=== PATIENT | female | born 1960 | race Caucasian/White ===

== ENCOUNTER 2017-08-07 09:12 | Emergency (ER) | payer BC ==
[2017-08-07 10:02] LABS: #Basophils 0.1 thou/uL (0.0-0.2); #Eosinphils 0.1 thou/uL (0.0-0.7); #Lymphocytes 1.7 thou/uL (1.20-3.40); #Monocytes 0.4 thou/uL (0.11-0.59); #Neutrophils 5.7 thou/uL (1.40-6.50); %Basophils 1.1 % (0.0-1.0); %Eosinophils 1.7 % (0.0-10.0); %Lymphocytes 21.4 % (21.0-51.0); %Monocytes 4.7 % (0.0-10.0); Hematocrit 42.9 % (36.0-47.0); Mean Platelet Volume 9.3 fL (7.4-10.4); Red Blood Cell (RBC) Count 4.53 mill/uL (4.20-5.40)
[2017-08-07 10:15] LABS: Carbon Dioxide 21 mmol/L (22-29); Chloride 108 mmol/L (98-107)
[2017-08-07 10:16] LABS: ALT (SGPT) 36 U/L (8-55); AST (SGOT) 29 U/L (5-34); Alkaline Phosphatase 100 U/L (40-150); Anion Gap 14 mmol/L (10-20); BUN (Urea Nitrogen) 9 mg/dL (9.8-20.1); Bilirubin, Total 0.6 mg/dL (0.2-1.2); CK (CPK) 145 U/L (29-168); Calc. Creatinine Clearance 0 mL/min (70-130); Calcium 9.4 mg/dL (7.8-10.44); Estimated GFR-MDRD 79; Globulin 3.1 g/dL (2.4-3.5); Troponin I Less than 0.010 ng/mL (< 0.028)
[2017-08-07] MEDS ORDERED: Meclizine HCl 25 MG TAB ONE (10:16)
--- NOTE | 2017-08-07 10:33 | RAD ---
PORTABLE CHEST: History: Syncope. FINDINGS: The heart size and mediastinum are within normal limits. The lungs are clear of any infiltrative pro cess. There are no significant bony findings. IMPRESSION: No active intrathoracic disease. POS: [facility]
== END 2017-08-07 12:21 | disposition home or self-care (01) ==
LOC: SCSER 09:12
DX: R42 Dizziness and giddiness (principal); R07.89 Other chest pain; K58.9 Irritable bowel syndrome, unspecified; E78.5 Hyperlipidemia, unspecified; M13.80 Other specified arthritis, unspecified site
CPT/HCPCS: 71010; 80053; 82550; 82553; 84484; 85025; 93005; 94760

== ENCOUNTER 2017-09-10 10:49 | Outpatient (CLI) | payer BC ==
--- NOTE | 2017-09-10 13:24 | MMO ---
BILATERAL SCREENING MAMMOGRAMS: Date: 09/10/17 Comparison made to prior exams from 2014 and 2015. This patient's mammogram was interpreted with the assistance of computer-aided detection. FINDINGS: Both breasts show fatty replacement. No mass or distortion. No suspicious calcification. No interval change identified. Recommend one year follow-up. IMPRESSION: BIRADS 1: Negative POS: [facility]
== END 2017-09-10 10:50 | disposition home or self-care (01) ==
LOC: SCSMAMMO 10:49
PROVIDERS: ATTEND Family Medicine
DX: Z12.31 Encounter for screening mammogram for malignant neoplasm of breast (principal)
CPT/HCPCS: 77067; G0202

== ENCOUNTER 2018-03-23 09:36 | Emergency (ER) | payer BC ==
--- NOTE | 2018-03-23 10:58 | RAD ---
LUMBAR SPINE 2 VIEWS: HISTORY: Back pain. Fall. Back injury. FINDINGS: Five lumbar-type vertebrae. Pedicles are intact. Vertebral body heights and AP alignment are mainta ined. Mild left convex curvature. Disk space narrowing at the L3-4 level. Mild osteophytosis. No acute fracture or dislocation. IMPRESSION: Mild lumbar spondylosis. No evidence of compression fracture. POS: [facility]
== END 2018-03-23 10:48 | disposition home or self-care (01) ==
LOC: SCSER 09:36
DX: S39.012A Strain of muscle, fascia and tendon of lower back, initial encounter (principal); E78.5 Hyperlipidemia, unspecified; Z79.899 Other long term (current) drug therapy; W01.0XXA Fall on same level from slipping, tripping and stumbling without subsequent striking against object, initial encounter
CPT/HCPCS: 72100

== ENCOUNTER 2018-09-16 08:41 | Outpatient (CLI) | payer BC ==
--- NOTE | 2018-09-16 10:10 | MMO ---
BILATERAL SCREENING DIGITAL MAMMOGRAMS: History: 58-year-old presents for annual screening mammograms. Comparison: 09-10-17, 08-14-16 This study is interpreted with the assistance of computer aided detection. FINDINGS: Images demonstrate no definite evidence of masses or lesions. No evidence of architectural distortion seen. Mammographic appearance is stable. IMPRESSION: BIRADS category 1 - negative exam. POS: [facility]
== END 2018-09-16 08:42 | disposition home or self-care (01) ==
LOC: SCSMAMMO 08:41
PROVIDERS: ATTEND Family Medicine
DX: Z12.31 Encounter for screening mammogram for malignant neoplasm of breast (principal)
CPT/HCPCS: 77067

== ENCOUNTER 2019-03-08 10:48 | Emergency (ER) | payer BC ==
[2019-03-08] MEDS ORDERED: Ibuprofen 600 MG TAB ONE (11:07)
[2019-03-08] MEDS ORDERED: Ibuprofen 200 MG TAB ONE (11:08)
--- NOTE | 2019-03-08 11:55 | RAD ---
EXAM: 3 views of the right foot HISTORY: Foot pain after dropping plywood on top of foot COMPARISON: None FINDINGS: 3 views of the right foot shows no evidence of acute fracture or dislocation. Mild dorsal s oft tissue swelling is seen. No degenerative changes are present. IMPRESSION: No evidence of acute osseous abnormality.
== END 2019-03-08 12:06 | disposition home or self-care (01) ==
LOC: SCSER 10:48
DX: S90.31XA Contusion of right foot, initial encounter (principal); E78.5 Hyperlipidemia, unspecified; M06.9 Rheumatoid arthritis, unspecified; Z79.899 Other long term (current) drug therapy; W22.8XXA Striking against or struck by other objects, initial encounter

== ENCOUNTER 2021-01-31 07:44 | Outpatient (CLI) | payer OTHER | END 2021-01-31 07:45 | disposition home or self-care (01) | LOC: BICMAMMO 07:44 | PROVIDERS: ATTEND Internal Medicine Rheumatology | DX: M81.0 Age-related osteoporosis without current pathological fracture (principal); M85.89 Other specified disorders of bone density and structure, multiple sites | CPT/HCPCS: 77080 ==

== ENCOUNTER → 2022-09-14 | Day surgery (SDC) | payer OTHER ==
[~2022-09-14] MED LIST: Tixagevimab 1.5 ML/Cilgavimab 1.5 ML (EUA) IM SCH
== END | disposition home or self-care (01) ==
LOC: ONC/OP 11:52
PROVIDERS: ATTEND Internal Medicine Rheumatology
DX: Z29.8 Encounter for other specified prophylactic measures (principal); Z88.5 Allergy status to narcotic agent
CPT/HCPCS: M0220; Q0220

== ENCOUNTER 2022-11-09 11:58 | Outpatient (CLI) | payer OTHER | END 2022-11-09 11:59 | disposition home or self-care (01) | LOC: SCSMRI 11:58 | PROVIDERS: ATTEND Family Medicine | DX: R41.89 Other symptoms and signs involving cognitive functions and awareness (principal) | CPT/HCPCS: 70553 ==